=== PATIENT | male | born 1955 | race Caucasian/White ===

== ENCOUNTER 2019-01-26 08:19 | Day surgery (SDC) | payer OTHER, MEDICARE ==
[~2019-01-26] VITALS: Ht 170.2 cm; Wt 102.1 kg
[2019-01-26] VITALS (14 sets, daily range): BP systolic 110–158; BP diastolic 65–83; PULSE 68–86; RESP 13–18; Ht 170.2 cm; Wt 102.1 kg
[~2019-01-26 08:19] MED LIST: CEFAZOLIN 1 GM INJ ONE; ROCURONIUM 50 MG INJ ONE
[2019-01-26] MEDS ORDERED: ASPI-817 PO (09:48)
[2019-01-26] MEDS ORDERED: LISI-471 PO (09:48)
[2019-01-26] MEDS ORDERED: GLIP5TAB13 PO (09:48)
[2019-01-26] MEDS ORDERED: HYDR25TA6 PO (09:48)
[2019-01-26] MEDS ORDERED: IBUP-1541 PO (09:48)
[2019-01-26] MEDS ORDERED: TAMS-14 PO (09:48)
[2019-01-26] MEDS ORDERED: ACET500C5 PO (09:48)
[2019-01-26] MEDS ORDERED: METF100010 PO (09:48)
[2019-01-26] MEDS ORDERED: SULF1TAB31 PO (09:48)
[2019-01-26] MEDS ORDERED: TRAM50TA2 PO (09:48)
--- NOTE | 2019-01-26 11:35 | PREAC ---
Date/Time of Note Date/Time of Note DATE: 01/26/19 TIME: 11:32 Anesthesia Eval and Record Evaluation Time Pre-Procedure Interview DATE: 01/26/19 TIME: 11:32 Age 63 Sex male NPO: 8 hrs Preoperative diagnosis penile cancer Planned procedure penectomy, perineal urethrostomy, bilateral resection of inguinal mass, penoplasty, bilateral inguinal lymph node dissection, bilateral myocutaneous flap Past Medical History Past Medical History: Includes Cardio: HTN Endo: Diabetes Renal: BPH GI: Obesity Surgery & Anesthesia Issues No known issue Meds Anticoagulation: No Beta Jessica within 24 hr: No Reason Beta Jessica not given: Pt. not on B-Jessica Reported Medications Sulfamethoxazole/Trimethoprim* (Bactrim Ds* Tablet) 1 Each Tablet, 1 TAB PO BID, TAB 01/26/19 Tramadol HCl (Tramadol HCl) 50 Mg Tablet, 50 MG PO Q4 PRN for PAIN LEVEL 6-10, #120 TAB 01/26/19 Tamsulosin Hcl* (Flomax*) 0.4 Mg Cap.er.24h, 0.4 MG PO DAILY, CAP 01/26/19 Metformin Hcl* (Metformin Hcl*) 1,000 Mg Tablet, 1000 MG PO WITH BREAKFAST DINNE, #30 TAB 01/26/19 Lisinopril* (Lisinopril*) 20 Mg Tablet, 20 MG PO DAILY, #30 TAB 01/26/19 Ibuprofen* (Ibuprofen*) 400 Mg Tablet, 400 MG PO Q6 for PAIN, TAB 01/26/19 Hydrochlorothiazide* (Hydrochlorothiazide*) 25 Mg Tab, 25 MG PO DAILY, #30 TAB 01/26/19 Glipizide* (Glipizide*) 5 Mg Tablet, 5 MG PO BID, TAB 01/26/19 Aspirin* (Aspirin* EC) 81 Mg Tablet.dr, 81 MG PO DAILY, TAB 01/26/19 Acetaminophen* (Tylophen*) 500 Mg Capsule, 1000 MG PO Q6H PRN for PAIN LEVEL 4- 6, TAB 01/26/19 Meds reviewed: Yes Allergies Coded Allergies: No Known Allergy (Unverified , 01/26/19) Allergies Reviewed: Yes Labs/Studies Labs Reviewed: Reviewed by anesthesiologist test: N/A Studies: ECG, CXR Pre-procedure Exam Last vitals Vital Signs Date Temp Pulse Resp B/P (MAP) Pulse Ox O2 O2 Flow FiO2 Time Delivery Rate 01/26/19 99.0 68 16 158/83 99 09:37 (108) Airway: Adequate mouth opening, Adequate thyromental dist Mallampati: Mallampati II Teeth: Normal Lung: Normal Heart: Normal ASA Physical Status ASA physical status: 3 Emergency: None Planned Anesthetic General/MAC: ETT Planned Pain Management Parenteral pain med Pre-operative Attestations Prior to commencing anesthesia and surgery, the patient was re-evaluated, there was verification of: *The patient's identity *The results of appropriate recent lab work and preoperative vital signs *The above evaluation not changing prior to induction *Anesthetic plan, risk benefits, alternative and complications discussed with patient/family; questions answered; patient/family understands, accepts and wishes to proceed. DAKSHA BETHEA MD Jan 26, 2019 11:35
[2019-01-26] MEDS ORDERED: LIDOCAINE 2% (SDV) 5 ML INJ ONE (12:27)
[2019-01-26] MEDS ORDERED: ROCURONIUM 50 MG INJ ONE (12:27)
[2019-01-26] MEDS ORDERED: MIDAZOLAM 1 MG/ML 2 ML INJ ONE (12:27)
[2019-01-26] MEDS ORDERED: FENTAnyl 50 MCG/ML VIAL ONE ×2 (12:27→15:21)
[2019-01-26] MEDS ORDERED: SUCCINYLCHOLINE CHLORIDE 100 MG/5 ML SYG IV ONE (12:27)
[2019-01-26] MEDS ORDERED: PROPOFOL 20 ML ONE (12:27)
[2019-01-26] MEDS ORDERED: OXYCODONE/ACETAMINOPHEN (5/325) TAB PO PRN (12:30)
[2019-01-26] MEDS ORDERED: PROCHLORPERAZINE 10 MG INJ IV PRN (12:30)
[2019-01-26] MEDS ORDERED: ONDANSETRON 4 MG INJ IV PRN (12:30)
[2019-01-26] MEDS ORDERED: FENTAnyl 50 MCG/ML VIAL IV PRN ×3 (12:30)
[2019-01-26] MEDS ORDERED: HYDROmorphONE 1 MG/5 ML IV SYRINGE IV PRN ×3 (12:30)
[2019-01-26] MEDS ORDERED: DIPHENHYDRAMINE 50 MG INJ IV PRN (12:30)
[2019-01-26] MEDS ORDERED: MEPERIDINE 25 MG INJ IV PRN (12:30)
[2019-01-26] MEDS ORDERED: FAMOTIDINE 20 MG INJ ONE (12:43)
[2019-01-26] MEDS ORDERED: ONDANSETRON 4 MG INJ ONE (12:43)
[2019-01-26] MEDS ORDERED: HYDROmorphONE 2 MG/ML SYG ONE (12:52)
[2019-01-26] MEDS ORDERED: hydrALAzine 20 MG INJ ONE (13:36)
[2019-01-26] MEDS ORDERED: GLYCOPYRROLATE 0.4 MG INJ ONE (15:10)
[2019-01-26] MEDS ORDERED: NEOSTIGMINE 3 MG/3 ML SYRINGE ONE (15:11)
--- NOTE | 2019-01-26 15:26 | SIPON ---
Date/Time of Note Date/Time of Note DATE: 01/26/19 TIME: 15:21 Operative Report Preoperative Diagnosis Penile cancer Postoperative Diagnosis Penile cancer Operation/Procedure Performed Penectomy Penoplasty Surgeon see signature line assistant tennis professional None Anesthesia: general Estimated blood loss: 150 - 200 ml's Transfusion Required none Specimen Partial penectomy specimen Scrotum Grafts/Implants none Complications none JESUS PERRIN Jan 26, 2019 15:26
--- NOTE | 2019-01-26 15:29 | PDOCDIS ---
Discharge Instructions DIAGNOSIS Discharge Diagnosis Penile cancer CONDITION [id number] Patient Condition: [id number] Good HOME CARE INSTRUCTIONS: [id number] Diet Instructions: Fufku0m Regular ACTIVITY: [id number] Activity Restrictions: [id number] Slowly Increase Activity Do not Drive (one week) [id number] Bathing Restrictions: [id number] Shower (Ok to start showering in two days) FOLLOW UP/APPOINTMENTS Follow-up Plan two weeks [facility] [place] office [phone] OTHER ORDERS: Other Orders: Keep urethral catheter to gravity with leg bag and night bag JESUS WRIGHT Jan 26, 2019 15:29
--- NOTE | 2019-01-26 15:34 | DS ---
Date/Time of Note Date/Time of Note DATE: 01/26/19 TIME: 15:29 Discharge Summary Admission/Discharge Info Admit Date/Time 01/26/19 Discharge Date/Time 01/26/19 Discharge Diagnosis Penile cancer Patient Condition: Good Consults None Procedures penectomy Penoplasty Hx of Present Illness Pt with penile cancer and Bilateral inguinal lymphadenopathy Hospital Course Pt underwent above said surgery Once he was stable, tolerating diet, remaining afebrile, and pain was well controlled, he was dc 'd home with jason cath Home Meds Reported Medications Sulfamethoxazole/Trimethoprim* (Bactrim Ds* Tablet) 1 Each Tablet, 1 TAB PO BID, TAB 01/26/19 Tramadol HCl (Tramadol HCl) 50 Mg Tablet, 50 MG PO Q4 PRN for PAIN LEVEL 6-10, #120 TAB 01/26/19 Tamsulosin Hcl* (Flomax*) 0.4 Mg Cap.er.24h, 0.4 MG PO DAILY, CAP 01/26/19 Metformin Hcl* (Metformin Hcl*) 1,000 Mg Tablet, 1000 MG PO WITH BREAKFAST DINNE, #30 TAB 01/26/19 Lisinopril* (Lisinopril*) 20 Mg Tablet, 20 MG PO DAILY, #30 TAB 01/26/19 Ibuprofen* (Ibuprofen*) 400 Mg Tablet, 400 MG PO Q6 for PAIN, TAB 01/26/19 Hydrochlorothiazide* (Hydrochlorothiazide*) 25 Mg Tab, 25 MG PO DAILY, #30 TAB 01/26/19 Glipizide* (Glipizide*) 5 Mg Tablet, 5 MG PO BID, TAB 01/26/19 Aspirin* (Aspirin* EC) 81 Mg Tablet.dr, 81 MG PO DAILY, TAB 01/26/19 Acetaminophen* (Tylophen*) 500 Mg Capsule, 1000 MG PO Q6H PRN for PAIN LEVEL 4- 6, TAB 01/26/19 Follow-up Plan two weeks Primary Care Provider Not On Staff Doctor Time spent on discharge: < 30 minutes Pending Labs Pt was given Rx Tylenol #3 and Bactrim Laboratory Tests Test 01/26/19 09:22 Bedside Glucose 107 mg/dL (70-220) JESUS PERRIN Jan 26, 2019 15:34
--- NOTE | 2019-01-26 15:50 | HP ---
DATE OF ADMISSION: 01/26/2019 IDENTIFICATION: This patient has a history of large fungating mass of the penis. HISTORY OF PRESENT ILLNESS: In 06/2018, the patient had developed painful urination and went to the urgent care. He subsequently underwent a penile biopsy in 10/2018 revealing squamous cell carcinoma. In 11/2018, CAT scan of abdomen and pelvis with and without IV contrast noted neoplasm of penile sh aft with bilateral inguinal lymphadenopathy. In 12/2018, PET-CT scan revealed large neoplastic mass shaft of penis, significantly enlarged right inguinal lymph node. Several adjacent left inguinal leigh ann nopathy was also seen. Subtle left external iliac adenopathy was also seen. A biopsy of the right i nguinal lymph node revealed squamous cell carcinoma. The patient has been on antibiotics for penile or urinary infection. The patient's mass over time has increased. It tends to bleed, has very strong odor. PAST MEDICAL HISTORY: Hypertension, diabetes. PAST SURGICAL HISTORY: Penis biopsy. FAMILY HISTORY: No history of cancer. SOCIAL HISTORY: The patient stopped drinking alcohol in 2017. Does not smoke. ALLERGIES: NO KNOWN DRUG ALLERGIES. MEDICATIONS: 1. Ambien. 2. Glipizide. 3. Hydrochlorothiazide. 4. Lisinopril. 5. Metformin. 6. The patient has been off aspirin. PHYSICAL EXAMINATION: CONSTITUTIONAL: The patient appears to be no acute distress. GASTROINTESTINAL: Abdomen is soft. Normal bowel sounds. Nondistended, nontender. Hernia exam is n one noted. Liver and spleen are normal. GENITOURINARY: Kidneys: No CVA tenderness. Bladder: No fullness. Penile exam reveals large funga ting malodorous mass which is actively bleeding involving shaft of the penis. The glans penis is not visible. It appears that distal aspect of the penis has been completely replaced by this tumor. Th e shaft of the penis is rigid hard and tender consistent with extension of the tumor towards the base of the penis. Scrotum is palpably normal. Testes descended bilaterally. LYMPH NODES: Bilateral large palpable lymphadenopathy is identified, both on the right and left side s. The lymph nodes were palpably enlarged and fixed. EXTREMITIES: Revealed no edema. ASSESSMENT: 1. 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 2. Bilateral inguinal lymphadenopathy consistent with metastatic disease. The lymphadenopathies are large and palpable. RECOMMENDATIONS: I have spoken with the patient as well as his medical oncologist about the various treatment options. He understands that his options include, but not limited to no treatment, penecto my with perineal urethrostomy and bilateral inguinal lymphadenectomy, only penectomy with no lymphade nectomy, chemotherapy. Among these options, I have recommended as well as his medical oncology has r ecommended that he undergo penectomy with bilateral inguinal lymphadenectomy rotational fat flap and possible perineal urethrostomy. This procedure has been explained to the patient in detail. Risks a nd benefits have been discussed. He understands that risks include, but not limited to infection, bl eeding, damage to adjacent structures, heart problems, lung problems, possibility of need for further surgery, DVT, PE, [place], CVA, nonresolution of symptoms, recurrence of symptoms, need for other treatme nts, need for other surgeries, chronic bilateral lower extremity lymphedema, chronic scrotal edema or penile edema, fistula formation, need for transfusion and bleeding. All the patient's questions hav e been answered. No guarantees were given. The patient would like to proceed. Dictated By: JESUS PERRIN MD, SR/CHUY Conf#: [id number] DID#: [id number]
--- NOTE | 2019-01-26 21:00 | OPR ---
DATE OF OPERATION: 01/26/2019 SURGEON: Jesus Wright M.D. RN BSN: None. PREOPERATIVE DIAGNOSIS: Penile carcinoma. POSTOPERATIVE DIAGNOSIS: Penile carcinoma. OPERATION PERFORMED: 1. Partial penectomy. 2. Penoplasty. 3. Scrotoplasty. INDICATIONS FOR PROCEDURE: This patient has a history of a fungating mass arising from his distal pe nis and extending to the mid shaft. He also has bilateral inguinal lymphadenopathy. He is scheduled to undergo a partial penectomy and bilateral inguinal lymphadenectomy. Procedure has been explained to the patient in detail. Risks and benefits have been discussed. All of his questions have been a nswered, no guarantees given. He would like to proceed. FINDINGS: The tumor involved the distal aspect of the penis to mid shaft. The portion of the penis which was buried deep underneath the suprapubic fat was normal. Therefore, a perineal urethrostomy w as not required. However, a complex penoplasty and scrotoplasty was required in order to get enough of a stump to not perform a urethroplasty. Furthermore, due to the length of the procedure as well a s due to the fact that inguinal lymphadenopathy would lead to severe edema. A decision was made not to perform the lymphadenectomy. During this procedure, a decision was made to allow the current woun d to heal properly. Prior to proceeding with the inguinal lymphadenopathy. Furthermore, I also spok e with the patient's medical oncologist. He may need to undergo some chemotherapy prior to the lymph adenectomy due to the fact that the lymph nodes are very enlarged and fixed against the inguinal floo r. PROCEDURE IN DETAIL: The patient was brought to the operating room, underwent general endotracheal t ube anesthesia. He was placed in a lithotomy position. Abdomen, perineum and genitalia were prepped and draped in usual sterile fashion. The penis was examined. There is a malodorous fungating mass of the penis which appeared to extend along the mid shaft of the penis. Due to the fact that the pat ient is obese and has a large suprapubic fat pad area, the normal aspect of the penis palpably was de eply buried underneath the suprapubic fat. At this point, a half circumferential incision was made along the dorsal aspect of the penis at the p upil penis junction. This incision was made about 3 to 4 cm proximal to skin of the penis which appe ared to be edematous and stuck against the penile mass. Therefore, a 3 to 4 cm margin was obtained. As the skin was opened, the skin contains multiple blood vessels which were cauterized or suture lig ated. Dissection was carried in this fashion circumferentially along the dorsal aspect of the penis down to the ____ layer and the corpus cavernosal tissue. Next, a circumferential incision was made e ventually. This incision was made in such a manner as to preserve as much scrotal skin as possible f or possible for further use if needed. Dissection was then carried down onto the corpus cavernosum. There were multiple parasitic vessels in these areas, which were suture ligated with 2-0 Vicryl sutu res. As dissection was carried the junction between the tumor and normal penis was easily palpable a nd visible. The tumor extended to the mid shaft of the penis. The portion of the penis which normal , was buried deep underneath the suprapubic fat. The penis was then further degloved proximally. Dissection was carried towards the suprapubic fat. A decision was made to mobilize the penis as much as possible in order to gain length. From the mid shaft of the penis and more proximally the penis appeared to be normal. It appeared that a perineal urethrotomy urethrostomy was not required, however, there was a requirement of getting enough stump o f the penis and doing some reconstructive work in order to bring the urethra to the scrotal skin area . This suprapubic fat was dissected further off the penis. Incision was carried all the way to the pub ic bone. The suspensory ligament of the penis was divided. This allowed further mobility on the sha ft of the penis and allowed more of the penis to draw out from the superpubic fat area. A tourniquet was then placed on the patient at this point, attention was paid to the ventral aspect o f the penis. The portion of the urethra which appeared to be normal was identified. Dissection was then carried along the ventral aspect until the corpus spongiosum on the ureter had been opened and t hen ureter had been opened. Once the urethra was opened, a 16-Serbian catheter was easily advanced th rough the urethra into the bladder. The bladder was emptied. At this point, about a 2 cm stump was allocated for the urethral. Therefore, the area where the corpus cavernosum would be transected was 2 cm more proximal than the urethra. The tumor was not involving the urethra. A tourniquet was then placed around the base of the penis using a Benton drain. At this point, the corpus cavernosa was on the right. The left side was transected. Next, the right side corpus cavern osum was transected again about a 2 cm stump of the urethra was kept intact. Therefore, the ureter w as about 2 cm longer than the corpus cavernosa the area of the transection. The central artery withi n the corpus cavernosum on each side was then suture ligated using a 2-0 Vicryl suture. The corpus c avernosum on either side was brought together using 2-0 Vicryl interrupted sutures. The tourniquet w as then released. The dorsal penile artery at the level of the transection was then suture ligated; however, rest of the penile artery was kept intact. It appeared that about a 4 to 5 cm stump had bee n obtained in this fashion on the cavernosal. At this point, attention was paid to performing a penoplasty in order to create a stump and prevent r etraction of the stump into the suprapubic fat. The penis had been freed in as much as possible. Th e superpubic fat skin which was around the area of the penis was further freed. Next, the subcutaneo us tissues of the superpubic fat skin dorsally were sutured against the shaft of the penis proximally in order to keep the stump of the penis out of the superpubic fat area. This was done between the 3 o'clock and 9 o'clock position anteriorly or dorsally. At this point, the scrotal skin was paid attention to. It appeared that there was excess skin which would cause bearing of the shaft within the scrotum ventrally. The scrotal skin was then bivalved al hayden the median raphe. This was done to a point where it appeared that the apex of the bivalve would serve as a good urethral meatus ventrally. Excess scrotal skin was then resected. Once this was don e, a Z-plasty was performed by making an incision along the right and left aspects of the lateral scr otum. At this point, the Z-plasty incisions were rotated and placed along the lateral and dorsal asp ects of the stump of the corpus cavernosum. The subcutaneous tissues were then sutured against the t unica albuginea taking care not to injure the vascular supply to the penis. This allowed tacking on of the Z-plasty flaps to the dorsal aspect of the corpus cavernosum, therefore, creating a skin on th e stump of the penis. The edges of the Z-plasty were also reapproximated using 3-0 Vicryl interrupte d sutures. The subcutaneous tissues were 2-0 Vicryl sutures. Once this was done, the skin was then further anastomosed to each other dorsally and laterally against the suprapubic fat skin. This allow ed the stump to stay out of this superpubic fat area. Attention was then paid to the urethra. Excess scrotal skin was further excised. The poor ventral a spect of the urethra was then anastomosed to the proximal portion of the scrotal skin as anterior as possible. Next, the skin was placed circumferentially around the urethra. The ureter was matured ag ainst the skin using interrupted 3-0 Vicryl sutures. Excellent eversion of the mucosa against the sc rotal skin was obtained. The rest of the skin was then closed using again 3-0 Vicryl sutures until a bout 4 cm stump on the penis was visible outside the suprapubic fat pad area until the urethra was we ll attached to the skin. Prior to closure of the wound, the wound had been copiously irrigated with saline. Furthermore, exce llent hemostasis had been obtained prior to closure of the subcutaneous layers. At this point, about a 4 cm opening within the scrotum along the median raphe was still open. The dartos was reapproxima kyler using 3-0 Vicryl running suture. The skin was then closed using 3-0 Vicryl running suture. The length of this procedure was about 2 hours. Furthermore, the inguinal lymph nodes were reexamine d. The lymph nodes were enlarged and appeared to be fixated against the inguinal floor. I decided n ot to perform the lymphadenectomy at this point, my concern was that performing a lymphadenectomy wou ld lead to severe edema of the genitalia. This would reach hard the healing of the wounds and would possibly cause a wound breakdown, especially since the patient also has diabetes. Therefore, a decis ion was made not to perform the lymphadenectomy concurrent with this particular operation. A scrotal support and fluffs were applied. The patient was then placed back in a supine position. He was kassie kened, extubated, and taken to recovery room in a stable condition. I also called the patient's [facility] oncologist. I spoke with him in regards to the lymph nodes, which included a bilateral lymph nod es as well as external iliac lymph nodes. I suggested that possibly considering patient to undergo a short course of chemotherapy for cytoreduction followed by bilateral inguinal lymphadenectomy and po ssible pelvic lymphadenectomy. In the meantime, we have reserved a date in about a 3.5 to 4 weeks fr om now for the lymphadenectomy in case patient does not undergo chemotherapy. At this time, will be given for patient to heal his penectomy and a partial penectomy 6 incisions. After that, then we ronald l proceed with the lymphadenectomy portion of the procedure. I also discussed in detail the plan wit h the patient's daughter. POSTOPERATIVE CONDITION: Again, is stable. COMPLICATIONS: None. BLOOD LOSS: 200 mL. BLOOD ADMINISTERED: None. SPECIMENS SENT TO LABORATORY: Partial penectomy specimen plus scrotal skin. Dictated By: JESUS WRIGHT MD SR/CHUY Conf#: [id number] DID#: [id number]
--- NOTE | 2019-01-27 09:29 | PAC ---
Date/Time of Note Date/Time of Note DATE: 01/27/19 TIME: 09:28 Post-Anesthesia Notes Post-Anesthesia Note Last documented vital signs Vital Signs Date Temp Pulse Resp B/P (MAP) Pulse Ox O2 O2 Flow FiO2 Time Delivery Rate 01/26/19 98.0 80 16 139/76 95 Room Air 16:48 Activity: WNL Respiratory function: WNL Cardiovascular function: WNL Mental status: Baseline Pain reasonably controlled: Yes Hydration appropriate: Yes Nausea/Vomiting absent: Yes DAKSHA BETHEA MD Jan 27, 2019 09:29
== END 2019-01-26 17:50 | disposition home or self-care (01) ==
LOC: SDS 08:19
PROVIDERS: ATTEND Surgery Surgical Oncology
DX: C60.9 Malignant neoplasm of penis, unspecified (principal); I10 Essential (primary) hypertension; E11.9 Type 2 diabetes mellitus without complications
CPT/HCPCS: 54120; 55180; 82962; 86850; 86900; 86901; 88307; 88342; J0360; J0690; J1170; J2250; J2405; J2710; J3010